=== PATIENT | male | born 1945 | race Caucasian/White ===

== ENCOUNTER 2017-04-21 03:49 | Emergency (ER) | payer OTHER ==
[~2017-04-21] VITALS: Ht 180.3 cm; Wt 83.5 kg
[~2017-04-21 03:49] MED LIST: ATEN-41 PO; PLE2.5 PO; RIBA200C13 PO; SOFO400T PO
[2017-04-21 03:55] VITALS: BP_SYST 150
--- NOTE | 2017-04-21 03:55 | NUR ---
Patient to ER bed 7 to gown for evaluation. Side rails up. Report given to Orion DENG.
--- NOTE | 2017-04-21 03:57 | NUR ---
Patient AAOx3, ambulatory. Patient states having "intermittent swelling to left hand" for approximately 2 weeks prior to ER visit; patient states itchiness to left hand with pain scale 8/10 at this time. No redness noted to patient's left hand. Patient denies any other complaints.
--- NOTE | 2017-04-21 04:14 | NUR ---
ER Dr. Zamora at bedside examining patient.
[2017-04-21 04:51] VITALS: BP_SYST 147
[2017-04-21] MEDS ORDERED: KETOROLAC TROMETHAMINE 30 MG VIAL ONE (06:30)
== END 2017-04-21 06:40 | disposition home or self-care (01) ==
LOC: SED 03:49
DX: M11.232 Other chondrocalcinosis, left wrist (principal); I10 Essential (primary) hypertension; E11.9 Type 2 diabetes mellitus without complications; Z90.49 Acquired absence of other specified parts of digestive tract; Z79.899 Other long term (current) drug therapy
CPT/HCPCS: 73110; 73130; 99284; J1885

== ENCOUNTER 2017-04-24 14:46 | Emergency (ER) | payer OTHER ==
[~2017-04-24] VITALS: Ht 177.8 cm; Wt 83.9 kg
[2017-04-24 14:59] VITALS: BP_SYST 138
[2017-04-24] MEDS ORDERED: traMADol HCL HCL 50 MG TABLET (ULTRAM) PO ONE (16:15)
[2017-04-24 16:39] LABS: BASOPHILS % (AUTO) 0.6 % (0.0-2.0); EOSINOPHILS # (AUTO) 0.1 K/uL (0.0-0.4); EOSINOPHILS % (AUTO) 1.6 % (0.0-4.0); HEMATOCRIT 43.9 % (36-54); HEMOGLOBIN 14.1 g/dL (14.0-18.0); LYMPHOCYTES # (AUTO) 1.1 K/uL (1.0-5.5); LYMPHOCYTES % (AUTO) 17.8 % (20.5-51.5); MEAN CORPUSCULAR HEMOGLOBIN 26 pg (27-31); MEAN CORPUSCULAR HGB CONC 32 % (32-36); MEAN CORPUSCULAR VOLUME 82 fL (79.0-98.0); MONOCYTES # (AUTO) 0.5 K/uL (0.0-1.0); MONOCYTES % (AUTO) 7.5 % (1.7-9.3); NEUTROPHILS # (AUTO) 4.4 K/uL (1.8-7.7); NEUTROPHILS % (AUTO) 72.5 % (40.0-70.0); PLATELET COUNT (AUTO) 211 K/uL (130-430); RED BLOOD CELL COUNT(AUTO) 5.39 MIL/uL (4.2-6.2); RED CELL DISTRIBUTION WIDTH 14.1 % (9.0-15.0); WHITE BLOOD COUNT (AUTO) 6.1 K/uL (4.8-10.8)
[2017-04-24 16:48] LABS: ANION GAP 5 (5-15); CALCIUM 9.7 mg/dL (8.4-11.0); CHLORIDE 107 mmol/L (98-107); CREATININE 1.09 mg/dL (0.55-1.30); GLUCOSE 111 mg/dL (70-99); SODIUM SERUM 139 mmol/L (136-145); UREA NITROGEN, BLOOD 20 mg/dL (8-21)
[2017-04-24 16:53] LABS: ALANINE AMINOTRANSFERASE 19 U/L (12-78); ALBUMIN 3.6 g/dL (3.4-4.8); ASPARTATE AMINOTRANSFERASE 20 U/L (10-37); TOTAL BILIRUBIN 0.5 mg/dL (0.0-1.0); URIC ACID 4.7 mg/dL (2.4-7.0)
[2017-04-24] MEDS ORDERED: PREDNISONE 20 MG TABLET PO ONE (17:00)
[2017-04-24 18:18] VITALS: BP_SYST 129
== END 2017-04-24 18:18 | disposition home or self-care (01) ==
LOC: SED 14:46
DX: M11.232 Other chondrocalcinosis, left wrist (principal); I10 Essential (primary) hypertension; E11.9 Type 2 diabetes mellitus without complications; Z87.891 Personal history of nicotine dependence; Z79.899 Other long term (current) drug therapy
CPT/HCPCS: 36415; 73110; 80053; 84550; 85025; 99285; J7512

== ENCOUNTER 2017-12-27 10:38 | Emergency (ER) | payer OTHER ==
[~2017-12-27] VITALS: Ht 177.8 cm; Wt 83.9 kg
[2017-12-27 11:01] VITALS: BP_SYST 134
== END 2017-12-27 13:00 | disposition left against medical advice (07) ==
LOC: SED 10:38
DX: N50.812 Left testicular pain (principal); Z53.21 Procedure and treatment not carried out due to patient leaving prior to being seen by health care provider

== ENCOUNTER 2018-10-24 04:49 | Emergency (ER) | payer OTHER ==
[~2018-10-24] VITALS: Ht 177.8 cm; Wt 82.6 kg
[2018-10-24 04:50] VITALS: BP_SYST 135
--- NOTE | 2018-10-24 04:53 | NUR ---
Patient to ER bed 8 to gown for evaluation. Side rails up. Report given to Aleksey DENG.
--- NOTE | 2018-10-24 05:02 | NUR ---
ER Dr. Lundberg at bedside examining patient.
--- NOTE | 2018-10-24 05:05 | NUR ---
Pt C/O of LT ingrown toenail to the LT great toe. Pt states he trimmed his nails last week and has been irritating him since. Has hx of diabetes and is concerned it may be infected. Denies any other symptoms besides the pain. Vital signs are stable, will continue to monitor.
[2018-10-24] MEDS ORDERED: LIDOCAINE 1% 10 MG/ML, 20 ML MDV INJ ONE (05:15)
[2018-10-24] MEDS ORDERED: KETOROLAC TROMETHAMINE 60 MG/2 ML VIAL IM ONE (05:15)
[2018-10-24] MEDS ORDERED: cefTRIAXone 1 GM VIAL IM ONE (05:15)
[2018-10-24 05:54] VITALS: BP_SYST 135
--- NOTE | 2018-10-24 05:55 | NUR ---
Patient given written and verbal discharge instructions and verbalizes understanding. ER MD discussed with patient the results and treatment provided. Patient in stable condition. ID arm band removed. Rx of Tramadol and Bactrim given. Patient educated on pain management and to follow up with PMD. Pain Scale 0. Opportunity for questions provided and answered. Medication side effect fact sheet provided.
== END 2018-10-24 05:55 | disposition home or self-care (01) ==
LOC: SED 04:49
DX: L60.0 Ingrowing nail (principal); L03.032 Cellulitis of left toe; E11.9 Type 2 diabetes mellitus without complications; I10 Essential (primary) hypertension; Z79.899 Other long term (current) drug therapy
CPT/HCPCS: 96372; 99283; J0696; J1885; J2001; 82962

== ENCOUNTER 2020-10-10 00:09 | Emergency (ER) | payer OTHER ==
[~2020-10-10] VITALS: Ht 177.8 cm; Wt 81.6 kg
[2020-10-10 00:15] VITALS: BP_SYST 130
[2020-10-10] MEDS ORDERED: IBUP-1969 PO (01:30)
[2020-10-10 02:00] VITALS: BP_SYST 132
== END 2020-10-10 02:00 | disposition home or self-care (01) ==
LOC: SED 00:09
DX: S63.502A Unspecified sprain of left wrist, initial encounter (principal); E11.9 Type 2 diabetes mellitus without complications; I10 Essential (primary) hypertension; X50.9XXA Other and unspecified overexertion or strenuous movements or postures, initial encounter; Y93.89 Activity, other specified; Y92.89 Other specified places as the place of occurrence of the external cause; Y99.8 Other external cause status
CPT/HCPCS: 99283

== ENCOUNTER 2020-12-01 10:35 | Emergency (ER) | payer OTHER ==
[~2020-12-01] VITALS: Ht 177.8 cm; Wt 80.7 kg
[~2020-12-01 10:35] MED LIST changes: +IBUP-1969 PO
[2020-12-01 10:54] VITALS: BP_SYST 133
--- NOTE | 2020-12-01 11:00 | NUR ---
MONTSE AND ASKED TO WAIT IN THE WAITING ROOM
--- NOTE | 2020-12-01 11:30 | NUR ---
ER DR. LEUNG EXAMINING PT
[2020-12-01] MEDS ORDERED: LIDOCAINE MPF 2% 5mL VIAL INJ ONE (13:30)
[2020-12-01] MEDS ORDERED: TRIAMCINOLONE ACETONIDE 40 MG/ML IA ONE (13:30)
--- NOTE | 2020-12-01 13:30 | NUR ---
PT BROUGHT SELF TO ER C/O RIGHT HAND PAIN/SWELLING, PT HAS BEEN TAKING IBUPROFEN 600MG AT HOME WITHOUT RELIEF. PT IS AMBULATORY, AAOX4, V/S STABLE
[2020-12-01] MEDS ORDERED: LIDOCAINE 2%, 20 ML MDV ONE (13:47)
--- NOTE | 2020-12-01 14:00 | NUR ---
Patient to Er h1 to gown for evaluation. Side rails up.
[2020-12-01] MEDS ORDERED: PRED20TA PO (14:15)
--- NOTE | 2020-12-01 14:29 | NUR ---
Patient given written and verbal discharge instructions and verbalizes understanding. ER MD discussed with patient the results and treatment provided. Patient in stable condition. ID arm band removed. Rx of PREDNISONE given. Patient educated on pain management and to follow up with PMD. Pain Scale 0/10. Opportunity for questions provided and answered. Medication side effect fact sheet provided.
[2020-12-01 14:33] VITALS: BP_SYST 129
== END 2020-12-01 14:33 | disposition home or self-care (01) ==
LOC: SED 10:35
DX: M19.041 Primary osteoarthritis, right hand (principal); M79.89 Other specified soft tissue disorders; I10 Essential (primary) hypertension; E11.9 Type 2 diabetes mellitus without complications; Z87.891 Personal history of nicotine dependence
CPT/HCPCS: 73130; 99283; J2001 ×2; J3301

== ENCOUNTER 2021-06-06 02:09 | Emergency (ER) | payer OTHER ==
[~2021-06-06 02:09] MED LIST changes: +PRED20TA PO; -RIBA200C13 PO; +[UNRECOGNIZED DRUG - CODE] PO
--- NOTE | 2021-06-06 02:50 | NUR ---
Patient left without being seen. No further treatment provided. ER MD aware
== END 2021-06-06 02:50 | disposition left against medical advice (07) ==
LOC: SED 02:09
DX: M79.643 Pain in unspecified hand (principal); Z53.21 Procedure and treatment not carried out due to patient leaving prior to being seen by health care provider

== ENCOUNTER 2021-06-29 10:25 | Emergency (ER) | payer OTHER ==
[~2021-06-29] VITALS: Ht 177.8 cm; Wt 81.6 kg
--- NOTE | 2021-06-29 10:44 | NUR ---
PT PLaced in bed 7 triage complete
[2021-06-29 10:45] VITALS: BP_SYST 131
[2021-06-29] MEDS ORDERED: CEPH-548 PO (10:53)
[2021-06-29 10:58] VITALS: BP_SYST 133
--- NOTE | 2021-06-29 11:00 | NUR ---
Patient given written and verbal discharge instructions and verbalizes understanding. JANY HARRISON MD discussed with patient the results and treatment provided. Patient in stable condition. ID arm band removed. Rx of KEFLEX given. Patient educated on pain management and to follow up with PMD. Pain Scale 4. Opportunity for questions provided and answered. Medication side effect fact sheet provided.
== END 2021-06-29 11:00 | disposition home or self-care (01) ==
LOC: SED 10:25
DX: S91.105A Unspecified open wound of left lesser toe(s) without damage to nail, initial encounter (principal); I10 Essential (primary) hypertension; E11.9 Type 2 diabetes mellitus without complications; Z79.899 Other long term (current) drug therapy; L08.9 Local infection of the skin and subcutaneous tissue, unspecified; W45.8XXA Other foreign body or object entering through skin, initial encounter; Y93.89 Activity, other specified; Y92.89 Other specified places as the place of occurrence of the external cause; Y99.8 Other external cause status
CPT/HCPCS: 99283

== ENCOUNTER 2021-08-22 09:06 | Emergency (ER) | payer OTHER ==
[~2021-08-22] VITALS: Ht 177.8 cm; Wt 81.6 kg
[~2021-08-22 09:06] MED LIST changes: +CEPH-548 PO
--- NOTE | 2021-08-22 09:17 | NUR ---
Patient to ER bed 4 to gown for evaluation. Side rails up. Report given to Maria Teresa DENG.
[2021-08-22 09:18] VITALS: BP_SYST 129
--- NOTE | 2021-08-22 09:31 | NUR ---
ER at bedside examining patient.
--- NOTE | 2021-08-22 09:33 | NUR ---
X-Ray being done at bedside.
--- NOTE | 2021-08-22 09:36 | NUR ---
76YO M WITH C/O LEFT FOOT PAIN X 2 DAYS. 01/19, NON-RADIATING. DENIES TRAUMA/INJURY TO AREA. DENIES SWELLING. NO MEDS TAKEN. PT IS AMBULATORY. ERMD MADE AWARE OF PT STATUS. PMH: CKD, DM, NEUROPATHY NKA
[2021-08-22] MEDS ORDERED: NAPR-688 PO (09:54)
[2021-08-22] MEDS ORDERED: HYDR-3917 PO (09:54)
[2021-08-22 10:03] VITALS: BP_SYST 129
--- NOTE | 2021-08-22 10:06 | NUR ---
Patient given written and verbal discharge instructions and verbalizes understanding. ER MD discussed with patient the results and treatment provided. Patient in stable condition. ID arm band removed. IV catheter removed intact and dressing applied, no active bleeding. Rx of NORCO, NAPROXEN given. Patient educated on pain management and to follow up with PMD. Pain Scale 10. Opportunity for questions provided and answered. Medication side effect fact sheet provided.
== END 2021-08-22 10:03 | disposition home or self-care (01) ==
LOC: SED 09:06
DX: M19.272 Secondary osteoarthritis, left ankle and foot (principal); E11.9 Type 2 diabetes mellitus without complications; I10 Essential (primary) hypertension
CPT/HCPCS: 99283

== ENCOUNTER 2022-11-14 15:38 | Emergency (ER) | payer OTHER ==
[~2022-11-14] VITALS: Ht 177.8 cm; Wt 81.6 kg
[~2022-11-14 15:38] MED LIST changes: +HYDR-3917 PO; +NAPR-688 PO
[2022-11-14 15:51] VITALS: BP_SYST 115; PULSE 62; RESP 18; TEMP 98.2; O2SAT 96
--- NOTE | 2022-11-14 15:51 | NUR ---
Placed in room 07 . Placed on leather carver, blood pressure machine and pulse oximeter. To gown for exam. Side rails up. Report given to ISH NEVILLE
[2022-11-14] MEDS ORDERED: APIX5TAB PO (16:04)
[2022-11-14] MEDS ORDERED: PYRI-7 PO (16:04)
[2022-11-14] MEDS ORDERED: METF-379 PO (16:04)
[2022-11-14] MEDS ORDERED: ALLO300T2 PO (16:04)
--- NOTE | 2022-11-14 16:05 | NUR ---
Medication reconciliation completed with information provided by PATIENT. Any prior medication reconciliation on file was reviewed and corrected.
--- NOTE | 2022-11-14 16:36 | NUR ---
Patient seen by MD and labs, radiology and ECG completed. Awaiting results at this time.
[2022-11-14 16:49] LABS: HEMATOCRIT 47.3 % (36-54); HEMOGLOBIN 14.8 g/dL (14.0-18.0); MEAN CORPUSCULAR HEMOGLOBIN 25 pg (27-31); MEAN CORPUSCULAR HGB CONC 31 % (32-36); MEAN CORPUSCULAR VOLUME 81 fL (79.0-98.0); PLATELET COUNT (AUTO) 369 K/uL (130-430); RED BLOOD CELL COUNT(AUTO) 5.85 MIL/uL (4.2-6.2); RED CELL DISTRIBUTION WIDTH 15.1 % (9.0-15.0); WHITE BLOOD COUNT (AUTO) 11.5 K/uL (4.8-10.8)
[2022-11-14 16:53] LABS: ANION GAP 6 (5-15); CALCIUM 8.9 mg/dL (8.4-11.0); CHLORIDE 103 mmol/L (98-107); CREATININE 0.98 mg/dL (0.55-1.30); GLUCOSE 99 mg/dL (74-106); UREA NITROGEN, BLOOD 22 mg/dL (8-21)
--- NOTE | 2022-11-14 16:54 | NUR ---
Ordered a [facility] food tray.
[2022-11-14 16:55] LABS: PROTHROMBIN TIME 10.8 SECS (9.5-12.5)
[2022-11-14 17:00] LABS: ALANINE AMINOTRANSFERASE 37 U/L (12-78); ALBUMIN 3.2 g/dL (3.4-4.8); ASPARTATE AMINOTRANSFERASE 22 U/L (10-37); TOTAL BILIRUBIN 0.3 mg/dL (0.0-1.0)
--- NOTE | 2022-11-14 17:00 | NUR ---
Patient is complaining of a chest palpitation that started about 10:00 yesterday morning he has a history of atrial fibrillation he takes Eliquis he states that that he was in sinus rhythm until then denies fever chills phlegm production difficulty breathing patient denies chest pain
[2022-11-14 17:01] LABS: BAND % (MANUAL) 1 % (0-6); BASOPHILS % (MANUAL) 0 % (0-2); EOSINOPHILS % (MANUAL) 0 % (0-7); LYMPHOCYTES % (MANUAL) 25 % (20-46); METAMYELOCYTES % 3 % (0-0); MONOCYTES % (MANUAL) 4 % (0-11); MYELOCYTES % 1 % (0-0)
--- NOTE | 2022-11-14 17:21 | NUR ---
Patient states that he is feeling OK at this time. Doesn't notice palpitations at this time.
--- NOTE | 2022-11-14 17:54 | NUR ---
Patient received dinner tray from [employer]. Patient has eaten all of the food and is resting at this time.
--- NOTE | 2022-11-14 18:36 | NUR ---
Patient given written and verbal discharge instructions and verbalizes understanding. ER MD discussed with patient the results and treatment provided. Patient in stable condition. ID arm band removed. IV catheter removed intact and dressing applied, no active bleeding. Opportunity for questions provided and answered. Medication side effect fact sheet provided.
[2022-11-14 18:38] VITALS: BP_SYST 101; PULSE 63; RESP 16; TEMP 98.2; O2SAT 99
== END 2022-11-14 18:36 | disposition home or self-care (01) ==
LOC: SED 15:38
DX: R00.2 Palpitations (principal); E11.9 Type 2 diabetes mellitus without complications; I10 Essential (primary) hypertension; Z79.899 Other long term (current) drug therapy
CPT/HCPCS: 36415; 71045; 80053; 82550; 83880; 84484; 85007; 85027; 85610-TC; 85730-TC; 93005; 99285

== ENCOUNTER 2023-09-28 04:38 | Emergency (ER) | payer OTHER ==
[~2023-09-28 04:38] MED LIST changes: +ALLO300T2 PO; +APIX5TAB PO; -CEPH-548 PO; -HYDR-3917 PO; -IBUP-1969 PO; +METF-379 PO; -NAPR-688 PO; -PRED20TA PO; +PYRI-7 PO; -SOFO400T PO; -[UNRECOGNIZED DRUG - CODE] PO
[2023-09-28] MEDS ORDERED: ALBUTEROL SULFATE 0.083% 2.5 MG/3 ML VIAL.NEB INH ONE (05:34)
[2023-09-28] MEDS ORDERED: predniSONE 20 MG TABLET ONE (06:10)
== END 2023-09-29 08:12 | disposition home or self-care (01) ==
LOC: SED 04:38
DX: J45.901 Unspecified asthma with (acute) exacerbation (principal); E11.9 Type 2 diabetes mellitus without complications; I10 Essential (primary) hypertension; Z79.899 Other long term (current) drug therapy; Z79.2 Long term (current) use of antibiotics
CPT/HCPCS: 99283; 71045; 94640; J7512; 93005